=== PATIENT | female | born 1990 | race African-American/Black ===

== ENCOUNTER 2016-05-22 19:26 | Emergency (ER) | payer SELFPAY ==
[2010-02-22 09:02] VITALS: BMI 20.7
== END 2016-05-22 22:12 | disposition home or self-care (01) ==
LOC: D.ER 19:26
DX: S42.002A Fracture of unspecified part of left clavicle, initial encounter for closed fracture (principal); V89.2XXA Person injured in unspecified motor-vehicle accident, traffic, initial encounter; Y93.89 Activity, other specified; Y92.410 Unspecified street and highway as the place of occurrence of the external cause

== ENCOUNTER 2016-09-18 14:52 | Emergency (ER) | payer MEDICAID ==
[2010-02-22 09:02] VITALS: BMI 20.7
[2016-09-18 15:30] LABS: BASOPHILS 0.2 % (0-2); EOSINOPHILS 0.7 % (0-7); HEMATOCRIT 35.7 % (36.0-48.0); HEMOGLOBIN 11.8 g/dL (12-16); IMMATURE GRANULOCYTES 0.3 % (0-5); LYMPHOCYTES 27.3 % (15-50); MCH 28.4 pg (26.0-34.0); MCHC 33.1 g/dL (31.0-37.0); MCV 85.8 fL (80.0-100.0); MEAN PLATELET VOLUME 9.6 fL (7.4-10.4); NEUTROPHILS 64.5 % (40-80); PLATELET COUNT 255 10x3/uL (130-400); RBC 4.16 10x6/uL (4.00-5.40); RDW 15.9 % (11.5-14.5); WBC 9.8 10x3/uL (4.8-10.8)
[2016-09-18 15:50] LABS: APPEARANCE HAZY (CLEAR); BILIRUBIN NEGATIVE (NEGATIVE); COLOR YELLOW (YELLOW); GLUCOSE NEGATIVE (NEGATIVE); KETONE NEGATIVE (NEGATIVE); LEUKOCYTE ESTERASE 2+ (NEGATIVE); NITRITE POSITIVE (NEGATIVE); PROTEIN TRACE mg/dL (NEGATIVE); UROBILINOGEN NORMAL (NORMAL)
[2016-09-18 15:52] LABS: HCG SERUM POSITIVE (NEGATIVE)
[2016-09-18 15:52] LABS: BACTERIA MANY /hpf (NONE SEEN); MUCUS <1+ /lpf (NONE SEEN); WHITE CELLS - URINE >50 /hpf (0-5)
== END 2016-09-18 16:30 | disposition home or self-care (01) ==
LOC: D.ER 14:52
PROVIDERS: Emergency Medicine
DX: O20.9 Hemorrhage in early pregnancy, unspecified (principal); Z3A.01 Less than 8 weeks gestation of pregnancy

== ENCOUNTER 2016-11-09 12:47 | Emergency (ER) | payer MEDICAID ==
[2010-02-22 09:02] VITALS: BMI 20.7
[2016-11-09 14:11] LABS: BASOPHILS 0.1 % (0-2); EOSINOPHILS 0.7 % (0-7); HEMATOCRIT 34.5 % (36.0-48.0); HEMOGLOBIN 11.8 g/dL (12-16); IMMATURE GRANULOCYTES 0.1 % (0-5); LYMPHOCYTES 21.6 % (15-50); MCHC 34.2 g/dL (31.0-37.0); MCV 84.8 fL (80.0-100.0); MONOCYTES 7.6 % (2-11); NEUTROPHILS 69.9 % (40-80); PLATELET COUNT 234 10x3/uL (130-400); RBC 4.07 10x6/uL (4.00-5.40); RDW 14.6 % (11.5-14.5)
[2016-11-09 14:29] LABS: HCG SERUM POSITIVE (NEGATIVE)
== END 2016-11-09 15:19 | disposition home or self-care (01) ==
LOC: D.ER 12:47
PROVIDERS: Emergency Medicine
DX: O20.9 Hemorrhage in early pregnancy, unspecified (principal); Z3A.14 14 weeks gestation of pregnancy; F17.200 Nicotine dependence, unspecified, uncomplicated

== ENCOUNTER 2018-07-21 06:20 | Emergency (ER) | payer MEDICAID ==
[~2018-07-21] VITALS: Ht 177.8 cm; Wt 77.1 kg
[2018-07-21 06:27] VITALS: Ht 177.8 cm; Wt 77.1 kg
[2018-07-21 06:45] LABS: BASOPHILS 0.3 % (0-2); EOSINOPHILS 0.9 % (0-7); HEMOGLOBIN 12.4 g/dL (12-16); IMMATURE GRANULOCYTES 0.1 % (0-5); LYMPHOCYTES 47.2 % (15-50); MCH 29.3 pg (26.0-34.0); MCHC 33.5 g/dL (31.0-37.0); MCV 87.5 fL (80.0-100.0); MEAN PLATELET VOLUME 10.5 fL (7.4-10.4); MONOCYTES 8.9 % (2-11); NEUTROPHILS 42.6 % (40-80); RBC 4.23 10x6/uL (4.00-5.40); RDW 13.9 % (11.5-14.5); WBC 7.6 10x3/uL (4.8-10.8)
[2018-07-21 07:05] LABS: APPEARANCE CLEAR (CLEAR); BILIRUBIN NEGATIVE (NEGATIVE); COLOR COLORLESS (YELLOW); GLUCOSE NEGATIVE (NEGATIVE); KETONE NEGATIVE (NEGATIVE); NITRITE NEGATIVE (NEGATIVE); PROTEIN NEGATIVE (NEGATIVE); SPECIFIC GRAVITY 1.005 (1.005-1.020); UROBILINOGEN NORMAL (NORMAL)
[2018-07-21 07:06] LABS: HCG URINE NEGATIVE (NEGATIVE)
[2018-07-21 07:06] LABS: ALBUMIN 3.6 g/dL (3.4-5.0); ALKALINE PHOSPHATASE 100 U/L (46-116); ALT (SGPT) 23 U/L (10-68); BILIRUBIN - TOTAL 0.19 mg/dL (0.2-1.3); CALC OSMOLALITY 267 mosm/kg (275-300); CALCIUM 8.8 mg/dL (8.5-10.1); CARBON DIOXIDE 22.1 mmol/L (21.0-32.0); CHLORIDE - SERUM 102 mmol/L (98-107); CREATININE - SERUM 1.1 mg/dL (0.6-1.3); GLUCOSE 79 mg/dL (74-106); POTASSIUM - SERUM 3.4 mmol/L (3.5-5.1); PROTEIN - SERUM 7.9 g/dL (6.4-8.2); SODIUM 135 mmol/L (136-145); UREA NITROGEN 10 mg/dL (7-18); eGFR NON AFRICAN AMERICAN 63 mL/min (90-120)
[2018-07-21 07:11] LABS: UDS - AMPHET POSITIVE QUAL (NEGATIVE); UDS - BARB NEGATIVE QUAL (NEGATIVE); UDS - BENZO NEGATIVE QUAL (NEGATIVE); UDS - COCAINE NEGATIVE QUAL (NEGATIVE); UDS - OPIATE NEGATIVE QUAL (NEGATIVE); UDS - PCP NEGATIVE QUAL (NEGATIVE); UDS - THC NEGATIVE QUAL (NEGATIVE)
[2018-07-21 07:12] LABS: CKMB 3.5 U/L (0.0-3.6); CREATINE KINASE 478 UL (21-215); MAGNESIUM - SERUM 2.1 mg/dL (1.8-2.4)
[2018-07-21 07:13] LABS: TROPONIN-I < 0.017 ng/mL (0.000-0.060)
[2018-07-21 07:14] LABS: PLATELET COUNT 300 10x3/uL (130-400)
[2018-07-21 10:36] VITALS: BP 132/98
== END 2018-07-21 10:24 | disposition home or self-care (01) ==
LOC: D.ER 06:20
PROVIDERS: Family Medicine
DX: F15.10 Other stimulant abuse, uncomplicated (principal); R07.9 Chest pain, unspecified

== ENCOUNTER 2019-01-08 15:54 | Emergency (ER) | payer MEDICAID ==
[~2019-01-08] VITALS: Ht 177.8 cm; Wt 73.6 kg
[2019-01-08 16:28] VITALS: BP 133/79; Ht 177.8 cm; Wt 73.6 kg
== END 2019-01-08 17:15 | disposition left against medical advice (07) ==
LOC: D.ER 15:54
DX: M25.512 Pain in left shoulder (principal); M25.511 Pain in right shoulder

== ENCOUNTER 2019-05-01 09:23 | Emergency (ER) | payer OTHER ==
[~2019-05-01] VITALS: Ht 177.8 cm; Wt 77.3 kg
[2019-05-01 09:28] VITALS: Ht 177.8 cm; Wt 77.3 kg
[2019-05-01 10:46] VITALS: BP 106/60
== END 2019-05-01 10:47 | disposition home or self-care (01) ==
LOC: D.ER 09:23
DX: O99.322 Drug use complicating pregnancy, second trimester (principal); F15.90 Other stimulant use, unspecified, uncomplicated; Z3A.18 18 weeks gestation of pregnancy

== ENCOUNTER 2019-08-09 21:52 | Outpatient (CLI) | payer OTHER ==
[2019-05-01 09:28] VITALS: BMI 24.4
[2019-08-09 22:33] LABS: BILIRUBIN NEGATIVE (NEGATIVE); GLUCOSE NEGATIVE (NEGATIVE); KETONE NEGATIVE (NEGATIVE); NITRITE NEGATIVE (NEGATIVE); SPECIFIC GRAVITY 1.015 (1.005-1.020); UROBILINOGEN NORMAL (NORMAL)
[2019-08-09 22:41] LABS: UDS - BARB NEGATIVE QUAL (NEGATIVE); UDS - BENZO NEGATIVE QUAL (NEGATIVE); UDS - COCAINE NEGATIVE QUAL (NEGATIVE); UDS - OPIATE NEGATIVE QUAL (NEGATIVE); UDS - PCP NEGATIVE QUAL (NEGATIVE); UDS - THC NEGATIVE QUAL (NEGATIVE)
[2019-08-09 22:46] LABS: UDS - AMPHET POSITIVE QUAL (NEGATIVE)
== END 2019-08-10 02:22 | disposition home or self-care (01) ==
LOC: D.LDO 21:52 → D.LD 21:53 → D.LDO 08-10 02:22
PROVIDERS: ATTEND Student in an Organized Health Care Education/Training Program
DX: O09.899 Supervision of other high risk pregnancies, unspecified trimester (principal); Z3A.00 Weeks of gestation of pregnancy not specified

== ENCOUNTER 2019-09-19 15:45 | Outpatient (CLI) | payer SELFPAY ==
[2019-05-01 09:28] VITALS: BMI 24.4
[2019-09-19 18:23] LABS: BILIRUBIN NEGATIVE (NEGATIVE); GLUCOSE NEGATIVE (NEGATIVE); KETONE NEGATIVE (NEGATIVE); NITRITE NEGATIVE (NEGATIVE); UROBILINOGEN NORMAL (NORMAL)
[2019-09-19 18:31] LABS: UDS - AMPHET POSITIVE QUAL (NEGATIVE); UDS - BARB NEGATIVE QUAL (NEGATIVE); UDS - BENZO NEGATIVE QUAL (NEGATIVE); UDS - COCAINE NEGATIVE QUAL (NEGATIVE); UDS - OPIATE NEGATIVE QUAL (NEGATIVE); UDS - PCP NEGATIVE QUAL (NEGATIVE); UDS - THC NEGATIVE QUAL (NEGATIVE)
--- NOTE | 2019-09-19 22:18 | NUR ---
PT SITTING UP IN BED WATCHING TV. MAMTA GIVEN PER MD ORDER. GRAPE JUICE, RICH CRACKERS AND JELLO TO PT PER REQUEST, SHE DENIES ANY FURTHER NEEDS AT THIS TIME. FAMILY MEMBER PRESENT AT BEDSIDE.
== END 2019-09-20 09:00 ==
LOC: D.LDO 15:45 → D.LD 15:45 → D.LDO 09-20 09:00
PROVIDERS: ATTEND Obstetrics & Gynecology
DX: O41.03X0 Oligohydramnios, third trimester, not applicable or unspecified (principal); Z3A.37 37 weeks gestation of pregnancy

== ENCOUNTER 2019-09-23 12:05 | Inpatient (IN) | payer OTHER ==
[~2019-09-23] VITALS: Ht 177.8 cm; Wt 87.5 kg
[2019-09-23 13:45] LABS: UDS - AMPHET POSITIVE QUAL (NEGATIVE); UDS - BARB NEGATIVE QUAL (NEGATIVE); UDS - BENZO NEGATIVE QUAL (NEGATIVE); UDS - COCAINE NEGATIVE QUAL (NEGATIVE); UDS - OPIATE NEGATIVE QUAL (NEGATIVE); UDS - PCP NEGATIVE QUAL (NEGATIVE); UDS - THC NEGATIVE QUAL (NEGATIVE)
[2019-09-23 13:53] LABS: HEMATOCRIT 36.8 % (36.0-48.0); HEMOGLOBIN 11.5 g/dL (12-16); MCH 28.8 pg (26.0-34.0); MCHC 31.3 g/dL (31.0-37.0); MEAN PLATELET VOLUME 10.3 fL (7.4-10.4); RDW 13.4 % (11.5-14.5); WBC 9.9 10x3/uL (4.8-10.8)
[2019-09-23] MEDS ORDERED: FERROUS SULFAT325 MG PO (14:16)
[2019-09-23 14:17] VITALS: BP 126/67; Ht 177.8 cm; Wt 87.5 kg
[2019-09-23 14:21] LABS: BACTERIA FEW /hpf (NEGATIVE); BILIRUBIN NEGATIVE (NEGATIVE); EPITHELIAL CELLS 0-5 /hpf (0-5); GLUCOSE NEGATIVE (NEGATIVE); KETONE NEGATIVE (NEGATIVE); NITRITE NEGATIVE (NEGATIVE); UROBILINOGEN NORMAL (NORMAL); WHITE CELLS - URINE 0-5 /hpf (NEGATIVE)
--- NOTE | 2019-09-23 21:15 | NUR ---
PT TRANSFERRED TO ROOM 1257 VIA AMB PER LIN JACINTO RN
--- NOTE | 2019-09-23 21:25 | NUR ---
THIS RN TO ROOM, PT SITTING UP IN BED EATING SANDWICH TRAY, PT REQUESTED AND SERVED LEMON SHOAL[place]ATER SODA, APPLE JUICE, AND RICH CRACKERS, INFORMED PT THAT I WILL BE BACK AROUND 10PM TO DO ASSESSMENT, PT VERBALIZES UNDERSTANDING, DENIES FURTHER NEEDS OR PAIN AT THIS TIME
[2019-09-23 22:00] VITALS: BP 109/65
--- NOTE | 2019-09-23 22:00 | NUR ---
ASSESSMENT PER FLOW SHEET, VS OBTAINED, SALINE LOCK IN RIGHT AC INTACT WITH NO REDNESS OR EDEMA, FF, ML, U/U, MOD BLEEDING NOTED ON CONY PAD, PT UP TO BR, GAIT STEADY, VOIDED WITH NO DIFFICULTY, PT DID OWN CONY CARE, PT BACK TO BED, DENIES FURTHER NEEDS AT THIS TIME
--- NOTE | 2019-09-23 23:10 | NUR ---
PT [employer] FLATBED TRUCK DRIVER LIGHT, PT WANTS TO TAKE SHOWER, SALINE LOCK COVERED AND TAPED, TOWELS, WASH CLOTHS, CLEAN GOWN, AND BODY WASH PROVIDED, PT DENIES FURTHER NEEDS, PT INST TO USE CALL LIGHT FOR ANY ASSISTANCE, FOB IN ROOM HOLDING INFANT
--- NOTE | 2019-09-24 00:24 | NUR ---
PT AWAKE, RESTING, DENIES PAIN, REQUESTED AND SERVED LEMON [place] SODA, DENIES FURTHER NEEDS, IN OPEN CRIB CART AND FOB AT BEDSIDE
--- NOTE | 2019-09-24 02:28 | NUR ---
PT RESTING WITH EYES CLOSED, RESP QUIET, NO DISTRESS NOTED, LEFT UNDISTURBED AT THIS TIME, IN OPEN CRIB CART AND FOB ASLEEP AT BEDSIDE
--- NOTE | 2019-09-24 04:52 | NUR ---
PT PATIENT SAFETY COORDINATOR LIGHT, PT C/O CRAMPING, ADM MOTRIN PER MD ORDERS, SEE EMAR, WITH FRESH GRAPE JUICE, PT DENIES FURTHER NEEDS, FOB AT BEDSIDE
[2019-09-24 05:14] LABS: BASOPHILS 0.2 % (0-2); EOSINOPHILS 0.6 % (0-7); HEMATOCRIT 32.6 % (36.0-48.0); HEMOGLOBIN 10.2 g/dL (12-16); IMMATURE GRANULOCYTES 0.3 % (0-5); MCH 28.4 pg (26.0-34.0); MCHC 31.3 g/dL (31.0-37.0); MCV 90.8 fL (80.0-100.0); MEAN PLATELET VOLUME 10.3 fL (7.4-10.4); MONOCYTES 8.2 % (2-11); NEUTROPHILS 68.7 % (40-80); PLATELET COUNT 276 10x3/uL (130-400); RBC 3.59 10x6/uL (4.00-5.40); RDW 13.4 % (11.5-14.5); WBC 11.8 10x3/uL (4.8-10.8)
[2019-09-24 06:10] LABS: RAPID PLASMA REAGIN Non Reactive (Non Reactive)
--- NOTE | 2019-09-24 06:25 | NUR ---
PT RESTING WITH EYES CLOSED, RESP QUIET, NO DISTRESS NOTED, LEFT UNDISTURBED AT THIS TIME, IN OPEN CRIB CART AND FOB ASLEEP ON COUCH
[2019-09-24 07:45] VITALS: BP 106/68
--- NOTE | 2019-09-24 07:45 | NUR ---
PT LYING SUPINE IN BED. VSS. HRRR WITHOUT AUDIBLE MURMUR. BBS CLEAR. BS X 4. ABDOMEN SOFT/NON-DISTENDED. FUNDUS FIRM AT U/2. RUBRA LOCHIA SMALL AMT. NO CLOTS NOTED. PT STATES PASSED A LARGE CLOT LAST PM. INSTRUCTED PT TO NOTIFY NURSE OF PASSING CLOTS OR SOAKING PAD IN ONE HOUR. PERINEUM WITHOUT EDEMA. NEG HOMANS' SIGN. PPP. NO EDEMA NOTED TO BLE. PT DENIES C/O OR NEEDS. SR UP X 2. CALL LIGHT IN REACH.....
--- NOTE | 2019-09-24 09:58 | NUR ---
PT SITTING UP ON SIDE OF BED. VISITS WITH SO. DENIES PAIN OR NEEDS.
--- NOTE | 2019-09-24 10:45 | NUR ---
PT IN BATHROOM AT THIS TIME. DENIES NEEDS OR C/O.
--- NOTE | 2019-09-24 10:50 | NUR ---
PT STATES DESIRE TO WALK IN HALLS. SL TO RIGHT AC DC'D WITH CATHELON INTACT. PRESSURE BANDAGE TO SITE. PT LULÚ WELL.
--- NOTE | 2019-09-24 11:05 | MORECARE ---
CASE MANAGEMENT DISCHARGE SUMMARY PATIENT: JOSSELYN LAY UNIT: [id number] ADM DATE: 09/23/19 AGE: 29 : 89 SEX: F ROOM/BED: D.1257 AUTHOR: KADIE CONTRERAS PHYSICIAN: REFERRING PHYSICIAN: MARYCARMEN ARRIAGA DO DATE OF SERVICE: 09/24/19 Discharge Plan Patient Name: JOSSELYN LAY Facility: [facility]:[place] : 1990 Planned Disposition: Home Anticipated Discharge Date: Discharge Date: Expected LOS: Initial Reviewer: [email or web address] Initial Review Date: 09/23/2019 Generated: 09/24/19 12:04 pm Patient Name: JOSSELYN LAY Page [id number] at 1105 All edits/amendments must be made on the electronic document DICTATION DATE: 09/24/19 110 ENGLISH PROFESSOR: FERNANDO 09/24/19 1104 RPT#: [id number] DC DATE: STATUS: ADM IN [facility] [address] [place] [address] END OF REPORT
--- NOTE | 2019-09-24 11:57 | NUR ---
[facility] WIND POWER PROJECT MANAGER CALLS. STATES ATTEMPTING TO CALL PT AT 1257. THIS NURSE TO ROOM. PT SITTING UP IN BED. CARING FOR . STATES PHONE HAS RANG, BUT DIDN'T ANSWER. WIND POWER PROJECT MANAGER EXTENSION GIVEN TO PT TO RETURN CALL.
--- NOTE | 2019-09-24 12:31 | NUR ---
DR ARRIAGA ON UNIT. ORDERS RECEIVED.
--- NOTE | 2019-09-24 12:41 | NUR ---
PT CALLS VIA BR CALL LIGHT. RN TO ROOM. PT NEEDS PANTIES AND PROVIDED. DENIES ADDITIONAL NEEDS AT THIS TIME.
--- NOTE | 2019-09-24 12:51 | NUR ---
PT SITTING UP IN BED. CONSUMING REG DIET. TOLERATING WELL. DECLINES DEPO-PROVERA AT THIS TIME.
--- NOTE | 2019-09-24 14:29 | NUR ---
PT LYING TO LEFT SIDE IN BED. WAKES UPON ENTERING ROOM. DENIES C/O OR NEEDS.
--- NOTE | 2019-09-24 15:32 | NUR ---
PT SITTING UP ON SIDE OF BED. FEEDING . REQUESTS AND RECEIVES APPLE JUICE.
--- NOTE | 2019-09-24 16:17 | MORECARE ---
CASE MANAGEMENT DISCHARGE SUMMARY PATIENT: DIANE ENRIQUEZ UNIT: [id number] ADM DATE: 09/23/19 AGE: 29 : 89 SEX: F ROOM/BED: D.1257 AUTHOR: DIANE,DOC PHYSICIAN: REFERRING PHYSICIAN: MARYCARMEN ARRIAGA DO DATE OF SERVICE: 09/24/19 Discharge Plan Patient Name: DIANE ENRIQUEZ Facility: [facility]:[place] : 1990 Planned Disposition: Home Anticipated Discharge Date: Discharge Date: Expected LOS: Initial Reviewer: [email or web address] Initial Review Date: 09/23/2019 Generated: 09/24/19 5:17 pm Comments DCP- Discharge Planning Updated by [email or web address]: Nargis Khan on 09/24/19 3:[address] CM met with patient regarding Case Management consult. 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 Patient is in agreement with consult. Patient's full name is Diane Enriquez. Address is: [address] [place] [address]. Phone number: [phone]. Baby's full name: Ashly Ku. Mother is unemployed. Patient lives with her mother, Kathy Lai [phone]. Patient states there are no additional people in the home. Patient has 2 children ages 5, 7 who were adopted. FOB: Ruiz Ku [phone]., works at the [employer] on [facility]. DC plan is to return home with her mother. Patient states she has used Meth since she was 19 years old, off and on. States the last time she snorted Meth was September 19. Patient states she uses the drug for her depression and anxiety. Patient receives $149.00 Food stamps/month. Pharmacy: [facility]. Patient states that her mother will drive her home. When MICHELLE asked the patient is she would be interested in drug rehab, she said yes.CM provided a list of Drug Rehab's for the patient to contact. She declines to contact one at this time. CM contacted [facility] Stewart @[address] [place] [address]. , request an appointment for a prescreen. Spoke with Mari who provided an appointment for September 28 @2:00. Encouraged patient to call Mari. Also, provided additional list for other Drug Rehabs. Patent is tearful. Last DP export: 09/24/19 10:04 a Patient Name: DIANE ENRIQUEZ Page [id number] at 1617 All edits/amendments must be made on the electronic document DICTATION DATE: 09/24/191616 BUY BOAT OPERATOR: FERNANDO 09/24/191616 RPT#: [id number] DC DATE: STATUS: ADM IN [facility] [address] [place] [address] END OF REPORT
[2019-09-24 17:00] VITALS: BP 123/71
--- NOTE | 2019-09-24 17:00 | NUR ---
PT SITTING UP ON SIDE OF BED. CONSUMING DINNER. VSS. DENIES C/O OR NEEDS. STATES "I AM BEING DISCHARGED IN A COUPLE OF HOURS AREN'T I?" PT INFORMED THAT DISCHARGE ORDER FOR 24 HOURS POST DELIVERY TIME. PT VERBALIZES UNDERSTANDING.
--- NOTE | 2019-09-24 17:04 | MORECARE ---
CASE MANAGEMENT DISCHARGE SUMMARY PATIENT: DIANE ENRIQUEZ UNIT: [id number] ADM DATE: 09/23/19 AGE: 29 : 89 SEX: F ROOM/BED: D.1257 AUTHOR: DIANE,DOC PHYSICIAN: REFERRING PHYSICIAN: MARYCARMEN ARRIAGA DO DATE OF SERVICE: 09/24/19 Discharge Plan Patient Name: DIANE ENRIQUEZ Facility: [facility]:[place] : 1990 Planned Disposition: Home Anticipated Discharge Date: Discharge Date: Expected LOS: Initial Reviewer: [email or web address] Initial Review Date: 09/23/2019 Generated: 09/24/19 6:04 pm Comments DCP- Discharge Planning Updated by [email or web address]: Nargis Khan on 09/24/19 4:[address] CM returned to the patient's room again, informed patient if she had called Mari @[employer] and she states she has not. Patient is very tearful and laying in the dark. With patient's permission, CM called Mari, with [employer] @[phone], put her on speaker phone and Mari visited with the patient. The patient participated with the conversation, verified that she will go to her appointment on Friday09/29/19 @2:00 pm for a prescreen. CM also provided a written information for [facility], encouraged her to reach out for counseling. Patient thanked me for the information. DCP- Discharge Planning Updated by [email or web address]: Nargis Khan on 09/24/19 3:[address] CM met with patient regarding Case Management consult. 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 Patient is in agreement with consult. Patient's full name is Diane Enriquez. Address is: [address] [place] [address]. Phone number: [phone]. Baby's full name: Ashly Ku. Mother is unemployed. Patient lives with her mother, Kathy Lai [phone]. Patient states there are no additional people in the home. Patient has 2 children ages 5, 7 who were adopted. FOB: Ruiz Ku [phone]., works at the [employer]. DC plan is to return home with her mother. Patient states she has used Meth since she was 19 years old, off and on. States the last time she snorted Meth was September 19. Patient states she uses the drug for her depression and anxiety. Patient receives $149.00 Food stamps/month. Pharmacy: [facility]. Patient states that her mother will drive her home. When CM asked the patient is she would be interested in drug rehab, she said yes.CM provided a list of Drug Rehab's for the patient to contact. She declines to contact one at this time. CM contacted [facility]se[facility] Stewart @[address] [place] [address]. , request an appointment for a prescreen. Spoke with Mari who provided an appointment for September 28 @2:00. Encouraged patient to call Mari. Also, provided additional list for other Drug Rehabs. Patent is tearful. Last DP export: 09/24/19 3:17 p Patient Name: DIANE ENRIQUEZ Page [id number] at 1704 All edits/amendments must be made on the electronic document DICTATION DATE: 09/24/191703 MECHANIC SENIOR: FERNANDO 09/24/191703 RPT#: [id number] AL DATE: STATUS: ADM IN [facility] [address] [place] [address] END OF REPORT
--- NOTE | 2019-09-24 17:12 | MORECARE ---
CASE MANAGEMENT DISCHARGE SUMMARY PATIENT: DIANE ENRIQUEZ UNIT: [id number] ADM DATE: 09/23/19 AGE: 29 : 88 SEX: F ROOM/BED: D.1257 AUTHOR: KADIE CONTRERAS PHYSICIAN: REFERRING PHYSICIAN: MARYCARMEN ARRIAGA DO DATE OF SERVICE: 09/24/19 Discharge Plan Patient Name: DIANE ENRIQUEZ Facility: [facility]:[place] : 1990 Planned Disposition: Home Anticipated Discharge Date: 09/24/19 Discharge Date: Expected LOS: 1 Initial Reviewer: [email or web address] Initial Review Date: 09/23/2019 Generated: 09/24/19 6:11 pm Comments DCP- Discharge Planning Updated by [email or web address]: Nargis Khan on 09/24/19 4:[address] CM returned to the patient's room again, informed patient if she had called Mari @[employer], and she states she has not. Patient is very tearful and laying in the dark. With patient's permission, MICHELLE called Mari, with [employer] @[phone], put her on speaker phone and Mari visited with the patient. The patient participated with the conversation, verified that she will go to her appointment on Friday09/29/19 @2:00 pm for a prescreen. MICHELLE also provided a written information for [facility], encouraged her to reach out for counseling. Patient thanked me for the information. DCP- Discharge Planning Updated by [email or web address]: Nargis Khan on 09/24/19 3:[address] CM met with patient regarding Case Management consult. 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 Patient is in agreement with consult. Patient's full name is Diane Enriquez. Address is: [address] [place] [address]. Phone number: [phone]. Baby's full name: Ashly Ku. Mother is unemployed. Patient lives with her mother, Kathy Lai [phone]. Patient states there are no additional people in the home. Patient has 2 children ages 5, 7 who were adopted. FOB: Ruiz Ku [phone]., works at the [employer] on [address] [place]. DC plan is to return home with her mother. Patient states she has used Meth since she was 19 years old, off and on. States the last time she snorted Meth was September 19. Patient states she uses the drug for her depression and anxiety. Patient receives $149.00 Food stamps/month. Pharmacy: [facility]. Patient states that her mother will drive her home. When CM asked the patient is she would be interested in drug rehab, she said yes.CM provided a list of Drug Rehab's for the patient to contact. She declines to contact one at this time. CM contacted [facility]se[facility] Stewart @[address] [place] [address]. , request an appointment for a prescreen. Spoke with Mari who provided an appointment for September 28 @2:00. Encouraged patient to call Mari. Also, provided additional list for other Drug Rehabs. Patent is tearful. Last DP export: 09/24/19 4:04 p Patient Name: DIANE ENRIQUEZ Page [id number] at 1712 All edits/amendments must be made on the electronic document DICTATION DATE: 09/24/191710 GLOBAL ENGINEERING MANAGER: FERNANDO 09/24/191710 RPT#: [id number] MA DATE: STATUS: ADM IN [facility] [address] [place] [address] END OF REPORT
--- NOTE | 2019-09-24 17:28 | NUR ---
PER Mino MONTES DE OCA, RN; PT TO NSY DOOR(WITHOUT INFANT). STATES "I'M LEAVING, COULD NOVA COME TO THE NURSERY?" BOUCHRA MONTES DE OCA RN TO PT ROOM TO GET INFANT. PT FOLLOWS RN TO ROOM. STATES "I CANT STAY ANYMORE, IT'S TOO HARD". BOUCHRA ASKS PT IF L&D KNOWS AND PT STATES "NO". BOUCHRA STATES SHE IMMEDIATELY WENT TO LABOR AND DELIVERY TO REPORT PT LEAVING. Beata PRIETO RN TO PT ROOM AND PT NOT IN ROOM AND NO BELONGINGS IN ROOM.
--- NOTE | 2019-09-24 17:49 | NUR ---
DR MENDENHALL NOTIFIED THAT PT HAS LEFT UNIT.
[2019-09-26 17:08] LABS: UDSC - AMPHET Negative (Cutoff=1000); UDSC - BARB Negative ng/mL (Cutoff=300); UDSC - BENZO Negative ng/mL (Cutoff=300); UDSC - COC Negative ng/mL (Cutoff=300); UDSC - METH Negative ng/mL (Cutoff=300); UDSC - OPIATES Negative ng/mL (Cutoff=300); UDSC - PCP Negative ng/mL (Cutoff=25); UDSC - PROPOXY Negative ng/mL (Cutoff=300); UDSC - THC Negative ng/mL (Cutoff=50)
--- NOTE | 2019-09-27 09:02 | MORECARE ---
CASE MANAGEMENT DISCHARGE SUMMARY PATIENT: DIANE ENRIQUEZ UNIT: [id number] ADM DATE: 09/23/19 AGE: 29 : 88 SEX: F ROOM/BED: D.1257 AUTHOR: DIANE,DOC PHYSICIAN: REFERRING PHYSICIAN: MARYCARMEN ARRIAGA DO DATE OF SERVICE: 09/27/19 Discharge Plan Patient Name: DIANE ENRIQUEZ Facility: [facility]:[place] : 1990 Planned Disposition: Home Anticipated Discharge Date: 09/24/19 Discharge Date: 09/24/2019 Expected LOS: 1 Initial Reviewer: [email or web address] Initial Review Date: 09/23/2019 Generated: 09/27/19 10:01 am Comments DCP- Discharge Planning Updated by [email or web address]: Nargis Khan on 09/24/19 4:[address] CM returned to the patient's room again, informed patient if she had called Mari @[employer], and she states she has not. Patient is very tearful and laying in the dark. With patient's permission, MICHELLE called Mari, with [employer] @[phone], put her on speaker phone and Mari visited with the patient. The patient participated with the conversation, verified that she will go to her appointment on Friday09/29/19 @2:00 pm for a prescreen. MICHELLE also provided a written information for [facility], encouraged her to reach out for counseling. Patient thanked me for the information. DCP- Discharge Planning Updated by [email or web address]: Nargis Khan on 09/24/19 3:[address] CM met with patient regarding Case Management consult. 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 Patient is in agreement with consult. Patient's full name is Diane Enriquez. Address is: [address] [place] [address]. Phone number: [phone]. Baby's full name: Ashly Ku. Mother is unemployed. Patient lives with her mother, Kathy Lai [phone]. Patient states there are no additional people in the home. Patient has 2 children ages 5, 7 who were adopted. FOB: Ruiz Ku [phone]., works at the [employer] on [facility]. PA plan is to return home with her mother. Patient states she has used Meth since she was 19 years old, off and on. States the last time she snorted Meth was September 19. Patient states she uses the drug for her depression and anxiety. Patient receives $149.00 Food stamps/month. Pharmacy: [facility]. Patient states that her mother will drive her home. When MICHELLE asked the patient is she would be interested in drug rehab, she said yes.CM provided a list of Drug Rehab's for the patient to contact. She declines to contact one at this time. CM contacted [facility]se[facility] Stewart @[address] [place] [address]. , request an appointment for a prescreen. Spoke with Mari who provided an appointment for September 28 @2:00. Encouraged patient to call Mari. Also, provided additional list for other Drug Rehabs. Patent is tearful. Last DP export: 09/24/19 4:12 p Patient Name: DIANE ENRIQUEZ Page [id number] at 0902 All edits/amendments must be made on the electronic document DICTATION DATE: 09/27/19900 INTERVENTIONAL PHYSICIAN: FERNANDO 09/27/19900 RPT#: [id number] DC DATE:09/24/19 STATUS: DIS IN [address] [address] END OF REPORT
== END 2019-09-24 17:28 | disposition left against medical advice (07) | DRG 806 ==
LOC: D.LDO 12:05 → D.LD 13:24
PROVIDERS: ADMIT Student in an Organized Health Care Education/Training Program; ATTEND Student in an Organized Health Care Education/Training Program
PROC: 10E0XZZ Delivery of Products of Conception, External Approach (ICD-10-PCS; principal; 2019-09-23)
DX: O36.8330 Maternal care for abnormalities of the fetal heart rate or rhythm, third trimester, not applicable or unspecified (principal); O99.324 Drug use complicating childbirth; Z37.0 Single live birth; Z3A.38 38 weeks gestation of pregnancy; F15.90 Other stimulant use, unspecified, uncomplicated

== ENCOUNTER 2019-10-25 18:21 | Emergency (ER) | payer OTHER ==
[~2019-10-25] VITALS: Ht 177.8 cm; Wt 75.0 kg
[~2019-10-25 18:21] MED LIST: FERROUS SULFAT325 MG PO
[2019-10-25 18:57] VITALS: BP 129/78; Ht 177.8 cm; Wt 75.0 kg
== END 2019-10-25 20:33 | disposition left against medical advice (07) ==
LOC: D.ER 18:21
DX: R03.0 Elevated blood-pressure reading, without diagnosis of hypertension (principal)

== ENCOUNTER 2020-06-13 22:55 | Outpatient (CLI) | payer OTHER ==
[2020-05-16 21:11] VITALS: BMI 28.6
--- NOTE | 2020-06-13 23:28 | NUR ---
DR RAM NOTIFIED AND REVIEWED PT's BEHAVIOR AND ASSESSMENT RESULTS. PT IS A LOW RISK PER DR RAM. DR RAM STATED TO GIVE RESOURCES TO PT AT TIME OF DISCHARGE. NO FURTHER ORDERS AT THIS TIME. RESOURCES REVIEWED WITH PT AND SHE VERBALIZED UNDERSTANDING.
[2020-06-13 23:33] LABS: UDS - AMPHET POSITIVE QUAL (NEGATIVE); UDS - BARB NEGATIVE QUAL (NEGATIVE); UDS - BENZO NEGATIVE QUAL (NEGATIVE); UDS - COCAINE NEGATIVE QUAL (NEGATIVE); UDS - OPIATE NEGATIVE QUAL (NEGATIVE); UDS - PCP NEGATIVE QUAL (NEGATIVE); UDS - THC NEGATIVE QUAL (NEGATIVE)
[2020-06-13 23:34] LABS: BILIRUBIN NEGATIVE (NEGATIVE); KETONE NEGATIVE (NEGATIVE); NITRITE NEGATIVE (NEGATIVE); UROBILINOGEN NORMAL mg/dL (< 2)
[2020-06-13 23:35] LABS: BACTERIA FEW HPF (NONE SEEN); SQUAMOUS EPITHELIAL 0-5 HPF (0-4); WHITE CELLS - URINE 0-5 HPF (0-4)
== END 2020-06-14 01:51 | disposition home or self-care (01) ==
LOC: D.LDO 22:55 → D.LD 23:34 → D.LDO 06-14 01:51
PROVIDERS: ATTEND Student in an Organized Health Care Education/Training Program
DX: O35.9XX0 Maternal care for (suspected) fetal abnormality and damage, unspecified, not applicable or unspecified (principal)

== ENCOUNTER 2020-07-09 13:17 | Outpatient (CLI) | payer OTHER ==
[2020-05-16 21:11] VITALS: BMI 28.6
[2020-07-09 14:31] LABS: BILIRUBIN NEGATIVE (NEGATIVE); KETONE NEGATIVE (NEGATIVE); NITRITE NEGATIVE (NEGATIVE); UROBILINOGEN NORMAL mg/dL (< 2)
[2020-07-09 14:33] LABS: BACTERIA MODERATE HPF (NONE SEEN)
== END 2020-07-09 17:30 | disposition home or self-care (01) ==
LOC: D.LDO 13:17
PROVIDERS: ATTEND Obstetrics & Gynecology
DX: O47.9 False labor, unspecified (principal)

== ENCOUNTER 2020-07-31 02:18 | Outpatient (CLI) | payer OTHER ==
[2020-05-16 21:11] VITALS: BMI 28.6
--- NOTE | 2020-07-31 05:38 | NUR ---
PATIENT IN LABOR AND DELIVERY HERE FOR HAVING CONTRACTIONS BUT SHE IS NOT HAVING ANY THOUGHTS OF SUICIDE AT THIS TIME, SHE STATES REASONS FOR LIVING, SHE HAS [employer] CONTACT AND SMILING. 1800 NUMBER GIVEN FOR FUTURE REFERENCE.
[2020-07-31 06:25] LABS: BILIRUBIN NEGATIVE (NEGATIVE); KETONE MODERATE mg/dL (NEGATIVE); NITRITE NEGATIVE (NEGATIVE); UROBILINOGEN NORMAL mg/dL (< 2)
[2020-07-31 06:29] LABS: UDS - AMPHET NEGATIVE QUAL (NEGATIVE); UDS - BARB NEGATIVE QUAL (NEGATIVE); UDS - BENZO NEGATIVE QUAL (NEGATIVE); UDS - COCAINE NEGATIVE QUAL (NEGATIVE); UDS - OPIATE NEGATIVE QUAL (NEGATIVE); UDS - PCP NEGATIVE QUAL (NEGATIVE); UDS - THC NEGATIVE QUAL (NEGATIVE)
== END 2020-07-31 12:10 | disposition home or self-care (01) ==
LOC: D.LDO 02:18
PROVIDERS: ATTEND Student in an Organized Health Care Education/Training Program
DX: O47.9 False labor, unspecified (principal)

== ENCOUNTER → 2020-08-04 11:28 | Outpatient (CLI) | payer OTHER ==
[2020-08-04 19:08] VITALS: BMI 28.6
== END | disposition home or self-care (01) ==
LOC: D.LDO 11:28
PROVIDERS: ATTEND Obstetrics & Gynecology
DX: O35.9XX0 Maternal care for (suspected) fetal abnormality and damage, unspecified, not applicable or unspecified (principal)

== ENCOUNTER 2020-08-12 18:45 | Inpatient (IN) | payer OTHER ==
[~2020-08-12] VITALS: Ht 175.3 cm; Wt 96.2 kg
[2020-08-12 19:37] LABS: HEMATOCRIT 29.2 % (36.0-48.0); HEMOGLOBIN 9.2 g/dL (12-16); MCH 26.7 pg (26.0-34.0); MCHC 31.5 g/dL (31.0-37.0); MCV 84.6 fL (80.0-100.0); MEAN PLATELET VOLUME 10.5 fL (7.4-10.4); RBC 3.45 10x6/uL (4.00-5.40); RDW 14.3 % (11.5-14.5); WBC 9.9 10x3/uL (4.8-10.8)
[2020-08-12 19:51] LABS: UDS - AMPHET NEGATIVE QUAL (NEGATIVE); UDS - BARB NEGATIVE QUAL (NEGATIVE); UDS - BENZO NEGATIVE QUAL (NEGATIVE); UDS - COCAINE NEGATIVE QUAL (NEGATIVE); UDS - OPIATE NEGATIVE QUAL (NEGATIVE); UDS - PCP NEGATIVE QUAL (NEGATIVE); UDS - THC NEGATIVE QUAL (NEGATIVE)
[2020-08-12 20:01] VITALS: BP 120/68; Ht 175.3 cm; Wt 96.2 kg
[2020-08-13 03:19] LABS: BASOPHILS 0.1 % (0-2); EOSINOPHILS 0.4 % (0-7); HEMATOCRIT 23.5 % (36.0-48.0); IMMATURE GRANULOCYTES 0.3 % (0-5); LYMPHOCYTE ABS# 2.96 10x3/uL (1.18-3.74); LYMPHOCYTES 20.5 % (15-50); MCH 26.5 pg (26.0-34.0); MCHC 31.5 g/dL (31.0-37.0); MCV 84.2 fL (80.0-100.0); MEAN PLATELET VOLUME 9.8 fL (7.4-10.4); MONOCYTES 4.7 % (2-11); NEUTROPHIL ABS# 10.67 10x3/uL (1.56-6.13); PLATELET COUNT 245 10x3/uL (130-400); RBC 2.79 10x6/uL (4.00-5.40); RDW 14.1 % (11.5-14.5); WBC 14.4 10x3/uL (4.8-10.8)
[2020-08-13 03:20] LABS: HEMOGLOBIN 7.4 g/dL (12-16)
[2020-08-13 07:15] VITALS: BP 139/74
--- NOTE | 2020-08-13 07:15 | NUR ---
RECEIVED PT SITTING UP IN BED. AWAKE. VSS. HRRR WITHOUT AUDIBLE MURMUR. BBS CLEAR. BS X 4. ABDOMEN SOFT/NON-DISTENDED. FUNDUS FIRM AT U/1. RUBRA LOCHIA SMALL AMT. NO CLOTS NOTED. PERINEUM WITHOUT EDEMA NOTED. NEG HOMANS' SIGN. PPP. NO EDEMA NOTED TO BLE. SL TO RIGHT HAND AND LEFT HAND. BOTH SITE CLEAR WITHOUT REDNESS, SWELLING OR DRAINAGE NOTED. PT DENIES C/O. REQUESTS AND RECEIVES INFANT TO ROOM. PT STATES DESIRE TO BREASTFEED. Maegan EDDY, RN ASSISTS PT WITH . SR UP X 2. CALL LIGHT IN REACH.
--- NOTE | 2020-08-13 08:20 | NUR ---
PT NAPKIN BAND WRAPPER LIGHT. PT REQUESTS IV DC. PT ENCOURAGED TO KEEP IV'S IN PLACE DUE TO RISK OF HEMMORHAGE. PT VERBALIZES UNDERSTANDING.
--- NOTE | 2020-08-13 10:00 | NUR ---
PT LYING SUPINE IN BED. EYES CLOSED. RESP NON-LABORED. PT WAKES UPON ENTERING ROOM. DENIES NEEDS OR C/O.
[2020-08-13 11:43] VITALS: BP 122/73
--- NOTE | 2020-08-13 11:43 | NUR ---
PT LYING IN SEMI-ALANIZ'S POSITION. WAKES UPON ENTERING ROOM. VSS. FUNDUS FIRM AT U/1. YUANRA ANDREAA SMALL AMT. ALL PERIPADS SINCE 0700 WEIGHED-QBL OF 135 ML. PT DENIES PASSING CLOTS WHEN VOIDING.
--- NOTE | 2020-08-13 12:40 | NUR ---
PT CLUSTER BORE OPERATOR LIGHT. C/O ABDOMINAL CRAMPING. NORCO 5/325 GIVEN PO ORDERED. PT INSTRUCTED ON MED. VERBALIZES UNDERSTANDING.
--- NOTE | 2020-08-13 13:00 | NUR ---
DR MENDENHALL VISITS WITH PT. STATES MAY DC ONE SALINE LOCK.
--- NOTE | 2020-08-13 13:34 | NUR ---
PT REQUESTS AND RECEIVES SL TO RIGHT HAND DC'D. CATHELON INTACT. PRESSURE BANDAGE TO SITE. PT C/O PAIN TO AREA. SITE CLEAR WITHOUT REDNESS, SWELLING OR DRAINAGE NOTED.
--- NOTE | 2020-08-13 17:35 | NUR ---
THIS NURSE TO ROOM. PT IN BATHROOM. STATES PASSED LARGE CLOT. DENIES HEAVY BLEEDING. PERIPAD NOTED WITH SCANT RUBRA LOCHIA. PT REQUESTS AND RECEIVES MORE PANTIES.
--- NOTE | 2020-08-13 18:00 | NUR ---
PT SITTING UP IN BED. TEARFUL. UPSET WITH FOB AND STATES DOES NOT WANT HIM BACK IN ROOM. DISCUSSED WITH PT CONFIDENTIAL STATUS. PT DECLINES AT THIS TIME.
[2020-08-13 19:28] VITALS: BP 124/61
--- NOTE | 2020-08-13 19:28 | NUR ---
ROUNDS COMPLETED, VSS, AFEBRILE, RESP EVEN AND UNLABORED, HEART RRR, ABD SOFT, BS +X4, REPORTS PASSING FLATUS, FF AT U/1 AND MIDLINE, LOCHIA RUBRA LIGHT [place] NO CLOTS, VOIDING QS WITHOUT DIFFICULTY, DAVIDSON FREELY, PEDAL PULSES 2+/= B. PROVIDED CUP OF LEMON [place] SODA, GRAPE JUICE, RICH CRACKERS PER REQUEST. REVIEWED POC, QUESTIONS ANSWERED. PT STATES UNDERSTANDING OF ALL INFORMATION REVIEWED. C/L IN EASY REACH. SR UP X2, BED IN LOW POSITION. CONTINUE TO MONITOR.
--- NOTE | 2020-08-13 20:39 | NUR ---
ROUNDS COMPLETED, FINAL DOSE METHERGINE PO GIVEN WITH SIPS WATER. INFANT IN ARMS, BONDING WELL. C/L IN EASY REACH, NAD NOTED. CONTINUE TO MONITOR.
--- NOTE | 2020-08-13 21:41 | NUR ---
ROUNDS COMPLETED, NAD NOTED. DENIES NEEDS/CONCERNS. C/L IN EASY REACH, CONTINUE TO MONITOR.
--- NOTE | 2020-08-13 23:17 | NUR ---
PT USING C/L TO REQUEST PRN MED FOR PAIN; SAME PROVIDED. NO OTHER NEEDS VOICED AT THIS TIME.
--- NOTE | 2020-08-14 01:47 | NUR ---
INFANT TO ROOM PER [facility] NURSE AT THIS TIME. MOM AWAKENED TO LIGHT VERBAL STIMULI. DENIES NEEDS.
--- NOTE | 2020-08-14 04:50 | NUR ---
ROUNDS MADE. PT RESTING WITH EYES CLOSED, RESPIRATIONS EVEN AND UNLABORED. PT LEFT UNDISTURBED.
--- NOTE | 2020-08-14 06:26 | NUR ---
ROUNDS MADE. PT RESTING SUPINE, HOB 30 DEGREES. EYES CLOSED, RESPIRATIONS EVEN AND UNLABORED. PT LEFT UNDISTURBED AT THIS TIME.
[2020-08-14 07:19] VITALS: BP 120/66
--- NOTE | 2020-08-14 07:19 | NUR ---
PT TRANSPORTATION AID LIGHT. REQUESTS AND RECEIVES PERIPADS AND PANTIES. VSS. HRRR WITHOUT AUDIBLE MURMUR. BBS CLEAR. BS X 4. ABDOMEN SOFT/NON-DISTENDED. FUNDUS FIRM AT U/1. RUBRA LOCHIA SMALL AMT. PT DENIES HEAVY BLEEDING OR PASSING CLOTS. NEG HOMANS' SIGN. PPP. NO EDEMA NOTED TO BLE. PT AMBULATES TO BR TO VOID. STATES HAD BM LAST NIGHT. REQUESTS AND RECEIVES SPRITE.
--- NOTE | 2020-08-14 08:44 | NUR ---
PT SITTING UP IN BED. VISITS WITH SO. ASKS ABOUT [facility]UE[facility]RAY FOR BREAKFAST. DIETARY NOTIFIED AND STATES TRAY IS ON IT'S WAY.
--- NOTE | 2020-08-14 10:00 | NUR ---
PT SITTING UP IN BED. REQUESTS AND RECEIVES LEMON-[place]OU[place] SODA. DENIES C/O.
--- NOTE | 2020-08-14 11:00 | NUR ---
PT LYING TO LEFT SIDE IN BED. EYES CLOSED. RESP NON-LABORED. PT NOT DISTURBED TO ALLOW FOR REST.
--- NOTE | 2020-08-14 12:15 | NUR ---
DR MENDENHALL VISITS WITH PT.
--- NOTE | 2020-08-14 13:41 | NUR ---
THIS NURSE TO ROOM. PT REQUESTS AND RECEIVES SALINE LOCK DC'D. CATHELON INTACT. PRESSURE BANDAGE TO SITE. PT STATES DESIRE TO ROOM IN TODAY. WILL NOTIFY DR MENDENHALL.
[2020-08-14] MEDS ORDERED: HYDROCODON-ACE1 EAC7 PO (14:23)
--- NOTE | 2020-08-14 15:19 | NUR ---
RECEIVED T/C FROM LEO BALDERRAMA RN, BUSINESS LAW INSTRUCTOR. STATES CALLED [employer] AND DHS RECOMMENDS CPS BE NOTIFIED THAT PT HAS DELIVERED. NURSERY STAFF NOTIFIED.
--- NOTE | 2020-08-14 15:25 | NUR ---
DR MENDENHALL NOTIFIED OF PT REQUEST TO DISCHARGE TO ROOMING IN STATUS. ORDERS RECEIVED.
--- NOTE | 2020-08-14 16:20 | NUR ---
DISCHARGE INSTRUCTIONS GIVEN TO PT. PT VERBALIZES UNDERSTANDING OF ALL INSTRUCTIONS. COPIES GIVEN TO PT. PT INSTRUCTED ON ROOMING IN POLICY. PT VERBALIZES UNDERSTANDING. COPY GIVEN TO PT. PT DISCHARGED TO ROOMING IN STATUS.
--- NOTE | 2020-08-14 17:21 | MORECARE ---
CASE MANAGEMENT DISCHARGE SUMMARY PATIENT: JOSSELYN LAY UNIT: [id number] ADM DATE: 08/12/20 AGE: 29 : 88 SEX: F ROOM/BED: [facility] AUTHOR: DIANE,DOC PHYSICIAN: REFERRING PHYSICIAN: GISELA MENDENHALL MD DATE OF SERVICE: 08/14/20 Case Management Discharge Planning Summary COMMENTS ENTERED DATE: 08/14/20 16:45 CT COMMENT TYPE: Discharge Planning REVIEWER: Mariely Majano CM was notified that ENEDELIA doesn't have custody of any of her other children and she is wearing a house arrest bracelet. CM called [facility] to see if the [facility] had an active case. CM spoke with Jo Ann Xiong [phone]. Jo Ann stated that there wasn't an active case that her last case was closed in April 2020. ENEDELIA last child from 09/2019 is in [facility] custody. Jo Ann suggested to call Hot line and see if they will take a report if not to call local [facility] office and request a home visit. Isabelle Pritchett RN notified of this information to call and follow up with [facility]. DCP REVIEW SUMMARY ANTICIPATED D/C DATE: EXPECTED LOS : CASE STATUS: DCP Initiated INITIAL REVIEW: 08/12/2020 INITIAL REVIEWER: Mariely Majano FINAL DISCHARGE DISPOSITION: : FINAL REVIEWER: FINAL REVIEW DATE: DCP [employer] Questions [employer] Answers QUESTION: ANSWER : PATIENT: JOSSELYN LAY ENCOUNTER: [id number] MEDICAL RECORD#: [id number] ADMISSION DATE: 08/12/2020 DISCHARGE DATE: ATTENDING MD: GISELA ALLEN : AGE: 29 MARITAL STATUS: S DC PLAN ID: [id number] FACILITY: [facility] PRINTED ON: 08/14/20 17:20 CT All edits/amendments must be made on the electronic document DICTATION DATE: 08/14/201719 PEDIATRIC DIETICIAN: FERNANDO 08/14/201719 RPT#: [id number] DC DATE: STATUS: ADM IN [facility] [address] [place] [address] END OF REPORT
--- NOTE | 2020-08-14 17:54 | MORECARE ---
CASE MANAGEMENT DISCHARGE SUMMARY PATIENT: JOSSELYN LAY UNIT: [id number] ADM DATE: 08/12/20 AGE: 29 : 88 SEX: F ROOM/BED: D.1276 AUTHOR: DIANE,DOC PHYSICIAN: REFERRING PHYSICIAN: GISELA MENDENHALL MD DATE OF SERVICE: 08/14/20 Case Management Discharge Planning Summary COMMENTS ENTERED DATE: 08/14/20 16:45 CT COMMENT TYPE: Discharge Planning REVIEWER: Mariely Majano CM was notified that ENEDELIA doesn't have custody of any of her other children and she is wearing a house arrest bracelet. CM called [facility] to see if the ENEDELIA had an active case. CM spoke with Jo Ann Xiong [phone]. Jo Ann stated that there wasn't an active case that her last case was closed in April 2020. ENEDELIA last child from 09/2019 is in [facility] custody. J Oann suggested to call Hot line and see if they will take a report if not to call local [facility] office and request a home visit. Isabelle Pritchett RN notified of this information to call and follow up with [facility]. DCP REVIEW SUMMARY ANTICIPATED D/C DATE: EXPECTED LOS : CASE STATUS: DCP Initiated INITIAL REVIEW: 08/12/2020 INITIAL REVIEWER: Mariely Majano FINAL DISCHARGE DISPOSITION: : FINAL REVIEWER: FINAL REVIEW DATE: DCP [employer] Questions & Answers QUESTION: ANSWER : PATIENT: JOSSELYN LAY ENCOUNTER: [id number] MEDICAL RECORD#: [id number] ADMISSION DATE: 08/12/2020 DISCHARGE DATE: 08/14/2020 ATTENDING MD: GISELA ALLEN : AGE: 29 MARITAL STATUS: S DC PLAN ID: [id number] FACILITY: [facility] PRINTED ON: 08/14/20 17:53 CT All edits/amendments must be made on the electronic document DICTATION DATE: 08/14/201752 [place] ATTENDANT: FERNANDO 08/14/201752 RPT#: [id number] DC DATE:08/14/20 STATUS: DIS IN [facility] [address] [place] [address] END OF REPORT
[2020-08-15 07:16] LABS: RAPID PLASMA REAGIN Non Reactive (Non Reactive)
== END 2020-08-14 16:20 | disposition home or self-care (01) | DRG 807 ==
LOC: D.LDO 18:45 → D.LD 18:55
PROVIDERS: ADMIT Obstetrics & Gynecology; ATTEND Obstetrics & Gynecology
PROC: 10E0XZZ Delivery of Products of Conception, External Approach (ICD-10-PCS; principal; 2020-08-13)
DX: O99.824 Streptococcus B carrier state complicating childbirth (principal); Z37.0 Single live birth; Z3A.39 39 weeks gestation of pregnancy; O99.344 Other mental disorders complicating childbirth; O99.334 Smoking (tobacco) complicating childbirth; F17.200 Nicotine dependence, unspecified, uncomplicated